=== PATIENT | female | born 1945 | race African-American/Black ===

== ENCOUNTER → 2017-06-30 | Outpatient (CLI) | payer MEDICARE, BC | END | disposition home or self-care (01) | LOC: PCVCIMAG 10:16 | DX: I10 Essential (primary) hypertension (principal); R00.2 Palpitations; I49.3 Ventricular premature depolarization; D57.3 Sickle-cell trait; Z79.899 Other long term (current) drug therapy | CPT/HCPCS: 80061; 93005; 93306; G0463 ==

== ENCOUNTER → 2018-05-24 | Outpatient (CLI) | payer MEDICARE, BC | END | disposition home or self-care (01) | LOC: PCVCCLINIC 16:05 | PROVIDERS: ATTEND Internal Medicine Cardiovascular Disease | DX: R00.2 Palpitations (principal); R94.31 Abnormal electrocardiogram [ECG] [EKG]; I49.3 Ventricular premature depolarization; I10 Essential (primary) hypertension; E78.00 Pure hypercholesterolemia, unspecified; Z88.8 Allergy status to other drugs, medicaments and biological substances; Z79.899 Other long term (current) drug therapy | CPT/HCPCS: 36415; 80061; 93005; G0463 ==

== ENCOUNTER → 2018-11-23 | Outpatient (CLI) | payer MEDICARE, BC ==
--- NOTE | 2018-11-23 13:50 | PCVCIMAG ---
APPROVED REPORT Study performed: 11/23/2018 10:39:22 Exam: Stress Echocardiogram Indication: Hypertension, PVC's. Patient Location: Echo lab Stress Nurse: Qing Bains RN Status: routine Ht: 5 ft 8 in HR: 90 bpm BP: 120/70 mmHg Rhythm: NSR Procedure The patient underwent an Exercise Stress Test using the Rikki Protocol. Blood pressure, heart rate, and EKG were monitored. An Echocardiogram was performed by clinical technician in four stages in quad fashion. At peak stress, four selected images were obtained and placed side by side with resting images for comparison. Stress Test Details Stress Test: Exercise stress testing was performed using a Rikki protocol. HR Resting HR: 90 bpmMax Heart Rate (APMHR): 148 bpm Max HR Achieved: 126 bpmTarget HR (85% APMHR): 125 bpm % of APMHR: 85 Recovery HR: 86 bpm HR response to stress: Normal HR response to stress BP Resting BP: 120/70 mmHg Max BP: 168/70 mmHg Recovery BP: 126/78 mmHg BP response to stress: Normal blood pressure response to stress. ECG Resting ECG: Sinus Rhythm, PVC's Stress ECG: Sinus Rhythm, PVC'S Arrhythmia: PVC'S Recovery ECG: Sinus Rhythm Recovery Arrhythmia: PVC'S Clinical Reason for Termination: Maximal effort Exercise duration: 2 min 02 sec Highest Stage Achieved: Stage 1: 1.7 mph at 10% grade. Exercise capacity: 4.60 METs Overall Exercise Capacity for Age: Poor Stress ECG Conclusion Submaximal stress test patient was only able to walk 2 minutes. Pre-Stress Echo The resting Echocardiogram showed normal left ventricular contractility with an estimated Ejection Fraction of about >55%. Post-Stress Echo The stress Echocardiogram showed normal left ventricular contractility with an estimated Ejection Fraction of about 55-60%. Conclusion Clinical Response: Non-ischemic Exercise Capacity: Below Average Stress ECG Response: Indeterminant Stress Echo Images: Non-ischemic Other Information Study Quality: Good
== END | disposition home or self-care (01) ==
LOC: PCVCIMAG 09:57
PROVIDERS: ATTEND Internal Medicine Cardiovascular Disease
DX: I10 Essential (primary) hypertension (principal); I49.3 Ventricular premature depolarization; R00.2 Palpitations; F41.9 Anxiety disorder, unspecified; J45.20 Mild intermittent asthma, uncomplicated; D57.3 Sickle-cell trait; Z77.090 Contact with and (suspected) exposure to asbestos
CPT/HCPCS: 93325; 93351